=== PATIENT | male | born 1970 | race African-American/Black ===

== ENCOUNTER 2021-09-16 09:53 | Inpatient (IN) ==
[2021-09-16] MEDS ORDERED: PIPERACILLIN/TAZOBACTAM 3,375 MG in SODIUM CHLORIDE 0.9% 100 ML IV STA (11:15)
[2021-09-16 11:59] LABS: Basophils % 0.4 % (0.0-0.8); Eosinophils # 0.1 10*3/uL (0.0-0.87); Eosinophils % 1.8 % (0.00-10.9); Hematocrit 46.5 VOL% (42.0-52.0); Hemoglobin 15.2 GM/DL (14.0-18.0); Immature Granulocytes % 0.4 %; Immature Granulocytes Absolute 0.02 #; Lymphocytes # 1.5 10*3/uL (1.4-4.0); Lymphocytes % 30.5 % (21.2-54.2); Mean Corpuscular HGB Conc 32.7 GM/DL (32-36); Mean Corpuscular Volume 79.2 FL (87-102); Mean Platelet Volume 10.3 FL (9.6-12.0); Monocytes # 0.4 10*3/uL (0.11-0.8); Monocytes % 7.4 % (1.7-12.7); Neutrophils % 59.5 % (38.7-73.9); Platelet Count 295 T/CUMM (130-400); Red Blood Count 5.87 MC/CUMM (3.8-5.5); Red Cell Distribution Width 13.2 % (9.3-17.3); White Blood Count 4.9 T/CUMM (4-12)
[2021-09-16 12:12] LABS: Alanine Aminotransferase 22 U/L (16-61); Alkaline Phosphatase 114 U/L (45-117); Aspartate Amino Transferase 19 U/L (0-37); Bilirubin,Total < 0.39 MG/DL (0.20-1.00); Blood Urea Nitrogen 10 MG/DL (7-18); Calcium 9.3 MG/DL (8.5-10.1); Carbon Dioxide 26 MMOL/L (21-32); Chloride 101 MMOL/L (98-107); Glucose 442 MG/DL (74-106); Osmolality,Calculated 283.4 MOS/KG (273-304); Potassium 4.1 MMOL/L (3.5-5.1); Sodium 133 MMOL/L (136-145); Total Protein 7.9 G/DL (6.4-8.2)
[2021-09-16] MEDS ORDERED: SODIUM CHLORIDE 0.9% 1,000 ML IV STA (12:16)
[2021-09-16] MEDS ORDERED: VANCOMYCIN INJ 1,000 MG in SODIUM CHLORIDE 0.9% 250 ML IV STA (13:08)
[2021-09-16] MEDS ORDERED: BISACODYL 5 MG TABLET PO PRN (13:11)
[2021-09-16] MEDS ORDERED: GLUCAGON 1 MG VIAL IM PRN (13:11)
[2021-09-16] MEDS ORDERED: ALUMINUM/MAGNES/SIMETH MAX STR 30 ML UDCUP PO PRN (13:11)
[2021-09-16] MEDS ORDERED: MORPHINE 2 MG/1 ML SYRINGE IV PRN (13:11)
[2021-09-16] MEDS ORDERED: ACETAMINOPHEN 325 MG TABLET PO PRN (13:11)
[2021-09-16] MEDS ORDERED: ONDANSETRON 4 MG/2 ML VIAL IV PRN (13:11)
[2021-09-16] MEDS ORDERED: DEXTROSE 10% 250 ML BAG IV PRN (13:11)
[2021-09-16] MEDS ORDERED: DOCUSATE SODIUM 100 MG CAPSULE PO PRN (13:11)
[2021-09-16] MEDS ORDERED: FUROSEMIDE 40 MG/4 ML VIAL IV ONE (14:06)
[2021-09-16 14:34] LABS: Thyroid Stimulating Hormone 2.3 uIU/ml (0.358-3.74)
[2021-09-16] MEDS: LACTATED RINGERS 1,000 ML IV SCH (14:35)
[2021-09-16] MEDS: INSULIN GLARGINE 100 UNIT/ML SUBCUT SCH ×2 (14:35→21:11)
[2021-09-16] MEDS: PANTOPRAZOLE 40 MG TABLET PO SCH (14:35)
[2021-09-16] MEDS: INSULIN LISPRO 100 UNIT/ML SUBCUT SCH ×2 (16:40→21:11)
[2021-09-16] MEDS: PIPERACILLIN/TAZOBACTAM 3,375 MG in SODIUM CHLORIDE 0.9% 100 ML IV SCH (20:48)
[2021-09-17] MEDS: LACTATED RINGERS 1,000 ML IV SCH ×2 (00:52→12:06)
[2021-09-17] MEDS: VANCOMYCIN INJ 1,250 MG in SODIUM CHLORIDE 0.9% 250 ML IV SCH ×2 (00:53→16:47)
[2021-09-17] MEDS: PIPERACILLIN/TAZOBACTAM 3,375 MG in SODIUM CHLORIDE 0.9% 100 ML IV SCH ×3 (02:50→19:55)
[2021-09-17 04:59] LABS: Eosinophils # 0.1 10*3/uL (0.0-0.87); Hematocrit 43.6 VOL% (42.0-52.0); Hemoglobin 13.8 GM/DL (14.0-18.0); Immature Granulocytes % 0.4 %; Immature Granulocytes Absolute 0.02 #; Lymphocytes # 1.3 10*3/uL (1.4-4.0); Lymphocytes % 26.3 % (21.2-54.2); Mean Corpuscular HGB Conc 31.7 GM/DL (32-36); Mean Corpuscular Volume 80.3 FL (87-102); Mean Platelet Volume 9.7 FL (9.6-12.0); Monocytes # 0.3 10*3/uL (0.11-0.8); Monocytes % 6.9 % (1.7-12.7); Neutrophils % 65.4 % (38.7-73.9); Platelet Count 254 T/CUMM (130-400); Red Blood Count 5.43 MC/CUMM (3.8-5.5); Red Cell Distribution Width 13.3 % (9.3-17.3); White Blood Count 4.8 T/CUMM (4-12)
[2021-09-17 05:24] LABS: Alanine Aminotransferase 17 U/L (16-61); Albumin 2.3 G/DL (3.4-5.0); Alkaline Phosphatase 90 U/L (45-117); Aspartate Amino Transferase 11 U/L (0-37); Bilirubin,Total < 0.39 MG/DL (0.20-1.00); Blood Urea Nitrogen 11 MG/DL (7-18); Calcium 8.4 MG/DL (8.5-10.1); Carbon Dioxide 23 MMOL/L (21-32); Chloride 107 MMOL/L (98-107); Cholesterol 185 MG/DL (50-200); Glucose 290 MG/DL (74-106); HDL Cholesterol 33 MG/DL (40-60); Osmolality,Calculated 282.8 MOS/KG (273-304); Potassium 3.8 MMOL/L (3.5-5.1); Risk Ratio 5.61; Sodium 137 MMOL/L (136-145); Total Protein 6.3 G/DL (6.4-8.2); Triglycerides 97 MG/DL (2-150); VLDL Cholesterol 19.4 MG/DL
[2021-09-17 06:46] LABS: Glucose,Urine (UA) 500 mg/dL (Negative); Mucus,Urine Occasional /LPF (Occasional); Protein,Urine Negative (Negative); RBC,Urine <1 /HPF (0-4); Squamous Epithelial Cell,Urine Occasional /HPF (0-10); Urine Appearance Clear (Clear); Urine Color Yellow (Yellow); Urine Specific Gravity > 1.030 (1.001-1.035)
[2021-09-17 06:47] LABS: Bilirubin,Urine Negative (Negative); Blood, Urine Negative (Negative); Ketones,Urine Trace mg/dL (Negative); Nitrite,Urine Negative (Negative); Urine Urobilinogen 0.2 eU/dL (<2.0)
[2021-09-17] MEDS: INSULIN LISPRO 100 UNIT/ML SUBCUT SCH ×4 (08:08→21:02)
[2021-09-17] MEDS: PANTOPRAZOLE 40 MG TABLET PO SCH (08:34)
[2021-09-17] MEDS: INSULIN GLARGINE 100 UNIT/ML SUBCUT SCH ×2 (08:34→21:02)
[2021-09-17] MEDS ORDERED: fentaNYL 100 MCG/2 ML VIAL ONE (14:14)
[2021-09-17] MEDS ORDERED: propofoL 200 MG/20 ML VIAL IV ONE (14:14)
[2021-09-17] MEDS ORDERED: LIDOCAINE 2% 5 ML VIAL ONE (14:14)
[2021-09-17] MEDS ORDERED: METOCLOPRAMIDE 10 MG/2 ML VIAL ONE (15:01)
[2021-09-17] MEDS ORDERED: SODIUM CHLORIDE 0.9% 1,000 ML IV ONE (15:03)
[2021-09-17] MEDS ORDERED: ONDANSETRON 4 MG/2 ML VIAL ONE (15:07)
[2021-09-17] MEDS ORDERED: ONDANSETRON 4 MG/2 ML VIAL IV PRN (15:27)
[2021-09-17] MEDS ORDERED: HYDROmorphone 1 MG/1 ML SYRINGE ONE (15:30)
[2021-09-17] MEDS: HYDROmorphone 1 MG/1 ML SYRINGE IV PRN ×2 (15:31→15:44)
[2021-09-17] MEDS: ENOXAPARIN 40 MG/0.4 ML SYRINGE SUBCUT SCH (16:42)
[2021-09-17] MEDS ORDERED: SKIN HEALING OINT (AQUAPHOR) 50 GM TUBE TOP PRN (18:19)
[2021-09-18] MEDS: PIPERACILLIN/TAZOBACTAM 3,375 MG in SODIUM CHLORIDE 0.9% 100 ML IV SCH ×3 (02:57→21:22)
[2021-09-18] MEDS: LACTATED RINGERS 1,000 ML IV SCH ×3 (04:13→19:46)
[2021-09-18 06:46] LABS: Basophils % 0.2 % (0.0-0.8); Eosinophils # 0.1 10*3/uL (0.0-0.87); Eosinophils % 2.5 % (0.00-10.9); Hematocrit 44.6 VOL% (42.0-52.0); Hemoglobin 14.4 GM/DL (14.0-18.0); Immature Granulocytes % 0.4 %; Immature Granulocytes Absolute 0.02 #; Lymphocytes # 1.5 10*3/uL (1.4-4.0); Lymphocytes % 28.7 % (21.2-54.2); Mean Corpuscular HGB Conc 32.3 GM/DL (32-36); Mean Corpuscular Volume 79.4 FL (87-102); Mean Platelet Volume 9.8 FL (9.6-12.0); Monocytes # 0.4 10*3/uL (0.11-0.8); Neutrophils % 60.2 % (38.7-73.9); Platelet Count 262 T/CUMM (130-400); Red Blood Count 5.62 MC/CUMM (3.8-5.5); Red Cell Distribution Width 13.4 % (9.3-17.3); White Blood Count 5.1 T/CUMM (4-12)
[2021-09-18 07:23] LABS: Calcium 8.6 MG/DL (8.5-10.1); Osmolality,Calculated 279.7 MOS/KG (273-304); Potassium 3.8 MMOL/L (3.5-5.1)
[2021-09-18] MEDS: VANCOMYCIN INJ 1,250 MG in SODIUM CHLORIDE 0.9% 250 ML IV SCH (10:06)
[2021-09-18] MEDS: PANTOPRAZOLE 40 MG TABLET PO SCH (10:06)
[2021-09-18] MEDS: INSULIN LISPRO 100 UNIT/ML SUBCUT SCH ×4 (10:07→21:23)
[2021-09-18] MEDS: INSULIN GLARGINE 100 UNIT/ML SUBCUT SCH ×2 (10:07→21:23)
[2021-09-18] MEDS: ENOXAPARIN 40 MG/0.4 ML SYRINGE SUBCUT SCH (18:50)
[2021-09-19] MEDS: VANCOMYCIN INJ 1,250 MG in SODIUM CHLORIDE 0.9% 250 ML IV SCH (00:33)
[2021-09-19] MEDS: LACTATED RINGERS 1,000 ML IV SCH ×2 (01:48→13:30)
[2021-09-19] MEDS: PIPERACILLIN/TAZOBACTAM 3,375 MG in SODIUM CHLORIDE 0.9% 100 ML IV SCH ×3 (02:08→18:06)
[2021-09-19] MEDS: INSULIN LISPRO 100 UNIT/ML SUBCUT SCH ×4 (08:47→21:27)
[2021-09-19] MEDS: PANTOPRAZOLE 40 MG TABLET PO SCH (08:47)
[2021-09-19] MEDS: INSULIN GLARGINE 100 UNIT/ML SUBCUT SCH ×2 (08:48→21:27)
[2021-09-19] MEDS ORDERED: lisinopriL 10 MG TABLET PO SCH (09:00)
[2021-09-19] MEDS ORDERED: VALSARTAN/HCTZ 160-12.5 MG TABLET PO SCH (10:30)
[2021-09-19] MEDS: hydroCHLOROthiazide 12.5 MG CAPSULE PO SCH (10:49)
[2021-09-19] MEDS: VALSARTAN 160 MG TABLET PO SCH (10:49)
[2021-09-19] MEDS: VANCOMYCIN INJ 1,000 MG in SODIUM CHLORIDE 0.9% 250 ML IV SCH ×2 (13:31→21:35)
[2021-09-19] MEDS: ENOXAPARIN 40 MG/0.4 ML SYRINGE SUBCUT SCH (16:28)
[2021-09-19] MEDS ORDERED: ROSUVASTATIN 20 MG TABLET PO SCH (21:00)
[2021-09-20] MEDS: PIPERACILLIN/TAZOBACTAM 3,375 MG in SODIUM CHLORIDE 0.9% 100 ML IV SCH ×2 (02:34→10:38)
[2021-09-20 05:13] LABS: Basophils % 0.4 % (0.0-0.8); Eosinophils # 0.2 10*3/uL (0.0-0.87); Hematocrit 42.8 VOL% (42.0-52.0); Hemoglobin 13.9 GM/DL (14.0-18.0); Immature Granulocytes % 0.4 %; Immature Granulocytes Absolute 0.02 #; Lymphocytes % 38.3 % (21.2-54.2); Mean Corpuscular HGB Conc 32.5 GM/DL (32-36); Mean Corpuscular Volume 79.6 FL (87-102); Mean Platelet Volume 9.7 FL (9.6-12.0); Monocytes # 0.5 10*3/uL (0.11-0.8); Monocytes % 9.2 % (1.7-12.7); Neutrophils % 47.7 % (38.7-73.9); Platelet Count 244 T/CUMM (130-400); Red Blood Count 5.38 MC/CUMM (3.8-5.5); Red Cell Distribution Width 13.4 % (9.3-17.3); White Blood Count 5.3 T/CUMM (4-12)
[2021-09-20 05:30] LABS: Osmolality,Calculated 277.3 MOS/KG (273-304); Potassium 3.3 MMOL/L (3.5-5.1)
[2021-09-20] MEDS: LACTATED RINGERS 1,000 ML IV SCH ×2 (05:59→08:48)
[2021-09-20] MEDS: VANCOMYCIN INJ 1,000 MG in SODIUM CHLORIDE 0.9% 250 ML IV SCH (06:00)
[2021-09-20] MEDS ORDERED: POTASSIUM CHLORIDE 20 MEQ TABLET PO ONE ×2 (07:46→10:42)
[2021-09-20] MEDS: VALSARTAN 160 MG TABLET PO SCH (08:47)
[2021-09-20] MEDS: INSULIN GLARGINE 100 UNIT/ML SUBCUT SCH ×2 (08:47→22:53)
[2021-09-20] MEDS: PANTOPRAZOLE 40 MG TABLET PO SCH (08:47)
[2021-09-20] MEDS: hydroCHLOROthiazide 12.5 MG CAPSULE PO SCH (08:47)
[2021-09-20] MEDS: INSULIN LISPRO 100 UNIT/ML SUBCUT SCH ×4 (08:55→22:53)
[2021-09-20] MEDS: ENOXAPARIN 40 MG/0.4 ML SYRINGE SUBCUT SCH (14:16)
[2021-09-21] MEDS: LACTATED RINGERS 1,000 ML IV SCH ×3 (03:54→16:12)
[2021-09-21] MEDS: VALSARTAN 160 MG TABLET PO SCH (09:32)
[2021-09-21] MEDS: hydroCHLOROthiazide 12.5 MG CAPSULE PO SCH (09:32)
[2021-09-21] MEDS: INSULIN GLARGINE 100 UNIT/ML SUBCUT SCH ×2 (09:32→21:18)
[2021-09-21] MEDS: PANTOPRAZOLE 40 MG TABLET PO SCH (09:33)
[2021-09-21] MEDS: INSULIN LISPRO 100 UNIT/ML SUBCUT SCH ×4 (09:33→21:19)
[2021-09-21] MEDS: ENOXAPARIN 40 MG/0.4 ML SYRINGE SUBCUT SCH (14:04)
[2021-09-21] MEDS: MELATONIN 3 MG TABLET PO PRN (23:51)
[2021-09-22] MEDS: LACTATED RINGERS 1,000 ML IV SCH ×3 (00:59→22:49)
[2021-09-22 06:11] LABS: Basophils % 0.2 % (0.0-0.8); Eosinophils # 0.2 10*3/uL (0.0-0.87); Hematocrit 45.1 VOL% (42.0-52.0); Hemoglobin 14.5 GM/DL (14.0-18.0); Immature Granulocytes % 0.7 %; Immature Granulocytes Absolute 0.03 #; Lymphocytes # 1.9 10*3/uL (1.4-4.0); Lymphocytes % 45.6 % (21.2-54.2); Mean Corpuscular HGB Conc 32.2 GM/DL (32-36); Mean Corpuscular Volume 79.5 FL (87-102); Mean Platelet Volume 9.6 FL (9.6-12.0); Monocytes # 0.4 10*3/uL (0.11-0.8); Monocytes % 8.6 % (1.7-12.7); Neutrophils % 40.9 % (38.7-73.9); Platelet Count 230 T/CUMM (130-400); Red Blood Count 5.67 MC/CUMM (3.8-5.5); Red Cell Distribution Width 13.5 % (9.3-17.3); White Blood Count 4.2 T/CUMM (4-12)
[2021-09-22 06:24] LABS: Calcium 9.2 MG/DL (8.5-10.1); Osmolality,Calculated 279.4 MOS/KG (273-304); Potassium 3.6 MMOL/L (3.5-5.1)
[2021-09-22] MEDS: PANTOPRAZOLE 40 MG TABLET PO SCH (09:35)
[2021-09-22] MEDS: VALSARTAN 160 MG TABLET PO SCH (09:36)
[2021-09-22] MEDS: INSULIN GLARGINE 100 UNIT/ML SUBCUT SCH ×2 (09:36→22:01)
[2021-09-22] MEDS: hydroCHLOROthiazide 12.5 MG CAPSULE PO SCH (09:36)
[2021-09-22] MEDS: INSULIN LISPRO 100 UNIT/ML SUBCUT SCH ×4 (09:37→22:01)
[2021-09-22] MEDS: ENOXAPARIN 40 MG/0.4 ML SYRINGE SUBCUT SCH (15:26)
[2021-09-22] MEDS: MELATONIN 3 MG TABLET PO PRN (22:51)
[2021-09-23] MEDS: VALSARTAN 160 MG TABLET PO SCH (08:49)
[2021-09-23] MEDS: PANTOPRAZOLE 40 MG TABLET PO SCH (08:49)
[2021-09-23] MEDS: hydroCHLOROthiazide 12.5 MG CAPSULE PO SCH (08:49)
[2021-09-23] MEDS: INSULIN LISPRO 100 UNIT/ML SUBCUT SCH ×2 (08:50→13:23)
[2021-09-23] MEDS: INSULIN GLARGINE 100 UNIT/ML SUBCUT SCH (08:50)
[2021-09-23 08:58] LABS: Basophils % 0.6 % (0.0-0.8); Eosinophils # 0.2 10*3/uL (0.0-0.87); Eosinophils % 3.7 % (0.00-10.9); Hematocrit 43.9 VOL% (42.0-52.0); Hemoglobin 14.2 GM/DL (14.0-18.0); Immature Granulocytes % 0.6 %; Immature Granulocytes Absolute 0.03 #; Lymphocytes # 1.8 10*3/uL (1.4-4.0); Mean Corpuscular HGB Conc 32.3 GM/DL (32-36); Mean Corpuscular Volume 79.2 FL (87-102); Mean Platelet Volume 9.2 FL (9.6-12.0); Monocytes # 0.5 10*3/uL (0.11-0.8); Neutrophils % 53.1 % (38.7-73.9); Platelet Count 222 T/CUMM (130-400); Red Blood Count 5.54 MC/CUMM (3.8-5.5); Red Cell Distribution Width 13.6 % (9.3-17.3); White Blood Count 5.4 T/CUMM (4-12)
[2021-09-23 09:26] LABS: Calcium 8.9 MG/DL (8.5-10.1); Potassium 3.9 MMOL/L (3.5-5.1)
[2021-09-23 12:22] VITALS: BP 141/78
[2021-09-23] MEDS: LACTATED RINGERS 1,000 ML IV SCH (13:23)
== END 2021-09-23 13:22 | disposition home or self-care (01) | DRG 982 ==
LOC: N.ED 09:53 → N.EDINP 13:11 → SUATTDRO 13:11 → N.5E 17:09
PROVIDERS: ADMIT Internal Medicine; ATTEND Internal Medicine